=== PATIENT | female | born 1955 | race African-American/Black ===

== ENCOUNTER 2018-04-07 08:56 | Emergency (ER) | payer OTHER ==
[~2018-04-07] VITALS: Ht 154.9 cm; Wt 79.0 kg
[2018-04-07] MEDS ORDERED: ONDANSETRON HCL 4MG/2ML INJ IV ONE (11:30)
[2018-04-07] MEDS ORDERED: MORPHINE SULFATE 4 MG/ML CPJ (NOT FOR IM USE) IV ONE (11:30)
[2018-04-07 11:54] LABS: BASOPHILS % 0.5 % (0.0-2.0); EOSINOPHILS % 1.2 % (0.0-5.0); HEMATOCRIT. 36.1 % (36.0-48.0); HEMOGLOBIN. 11.4 g/dL (12.0-16.0); LYMPHOCYTES % 33.8 % (20.0-50.0); MEAN CORPUSCULAR HEMOGLOBIN 25.5 pg (28.0-32.0); MEAN CORPUSCULAR VOLUME 80.4 fL (81.0-99.0); MEAN PLATELET VOLUME 7.7 fl (7.4-10.4); NEUTROPHILS % 56.5 % (40.0-76.0); PLATELET 328 x1000/uL (130-400); RED BLOOD CELL COUNT 4.49 mill/uL (4.2-5.4); RED CELL DISTRIBUTION WIDTH 14.3 % (11.6-14.6)
[2018-04-07 12:00] LABS: CHLORIDE 109 mEq/L (98-107)
[2018-04-07 12:06] LABS: D-DIMER 0.24 mg/L FEU (<0.50); PARTIAL THROMBOPLASTIN TIME 29.9 sec (23.4-31.0)
[2018-04-07] MEDS ORDERED: IOHEXOL-350 100 ML BOTTLE ONE (13:36)
[2018-04-07 16:06] VITALS: BP 114/68
== END 2018-04-07 16:07 | disposition home or self-care (01) ==
LOC: ER 08:56
DX: M54.6 Pain in thoracic spine (principal); J44.9 Chronic obstructive pulmonary disease, unspecified; M25.512 Pain in left shoulder; Z90.49 Acquired absence of other specified parts of digestive tract; Z98.890 Other specified postprocedural states; Z87.891 Personal history of nicotine dependence; Z88.6 Allergy status to analgesic agent
CPT/HCPCS: 36415; 71045; 71275; 73030; 80053; 83880; 84484; 85025; 85379; 85610; 85730; 93005; 96374; 96375; 99284; J2270; J2405; Q9967

== ENCOUNTER 2019-01-01 18:20 | Emergency (ER) | payer OTHER ==
[~2019-01-01] VITALS: Ht 154.9 cm; Wt 73.8 kg
[2019-01-01] MEDS ORDERED: DIPH-907 PO (18:28)
[2019-01-01] MEDS ORDERED: TIOT4MIS3 IH (18:28)
[2019-01-01] MEDS ORDERED: FLUORESCEIN SODIUM 1MG/STRIP LEFTEYE ONE (20:45)
[2019-01-01] MEDS ORDERED: TETRACAINE 0.5% OPHTH DROPS 4ML LEFTEYE ONE (20:45)
[2019-01-01] MEDS ORDERED: BALANCED SALT IRRIG SOLN 15ML IR ONE (21:30)
[2019-01-01] MEDS ORDERED: DIPHENHYDRAMINE 50MG/ML VIAL IV ONE (22:00)
[2019-01-01] MEDS ORDERED: METHYLPREDNISOLONE SOD SUCC 125 MG/2 ML VIAL IV ONE (22:00)
[2019-01-02 00:12] VITALS: BP 128/60
== END 2019-01-02 00:13 | disposition home or self-care (01) ==
LOC: ER 18:20
DX: R20.0 Anesthesia of skin (principal); L29.9 Pruritus, unspecified; H57.89 Other specified disorders of eye and adnexa; T48.6X5A Adverse effect of antiasthmatics, initial encounter; Y92.89 Other specified places as the place of occurrence of the external cause; Z87.891 Personal history of nicotine dependence; R03.0 Elevated blood-pressure reading, without diagnosis of hypertension
CPT/HCPCS: 96374; 99284; J1200; J2930

== ENCOUNTER 2020-12-21 07:28 | Emergency (ER) | payer MEDICARE, OTHER ==
[~2020-12-21] VITALS: Ht 152.4 cm; Wt 76.0 kg
[~2020-12-21 07:28] MED LIST: DIPH-907 PO; TIOT4MIS3 IH
[2020-12-21] MEDS ORDERED: ONDANSETRON HCL 4MG/2ML INJ IV STA (10:04)
[2020-12-21] MEDS ORDERED: SODIUM CHLORIDE 0.9% 1,000 ML IV ONE (10:15)
[2020-12-21 10:30] LABS: BASOPHILS % 0.6 % (0.0-2.0); EOSINOPHILS % 0.9 % (0.0-5.0); HEMOGLOBIN. 12.9 g/dL (12.0-16.0); LYMPHOCYTES % 24.4 % (20.0-50.0); MEAN PLATELET VOLUME 8.4 fl (7.4-10.4); MONOCYTES % 6.1 % (2.0-8.0); PLATELET 311 x1000/uL (130-400); RED BLOOD CELL COUNT 4.59 mill/uL (4.2-5.4)
[2020-12-21 10:39] LABS: CHLORIDE 110 mEq/L (98-107)
[2020-12-21 12:02] LABS: CLARITY URINE CLEAR (CLEAR); COLOR URINE YELLOW (YELLOW); KETONES URINE NEGATIVE (NEGATIVE); LEUKOCYTE ESTERASE URINE NEGATIVE (NEGATIVE); NITRITE URINE NEGATIVE (NEGATIVE); OCCULT BLOOD URINE NEGATIVE (NEGATIVE); PH URINE 5.5 (4.5-8.0); PROTEIN URINE NEGATIVE (NEGATIVE); SPECIFIC GRAVITY URINE 1.009 (1.005-1.030); UROBILINOGEN URINE 0.2 E.U./dL (0.2-1.0)
[2020-12-21 14:23] VITALS: BP 130/69
== END 2020-12-21 14:28 | disposition home or self-care (01) ==
LOC: ER 07:28
DX: R42 Dizziness and giddiness (principal); R11.0 Nausea; E03.9 Hypothyroidism, unspecified; J44.9 Chronic obstructive pulmonary disease, unspecified
CPT/HCPCS: 36415; 71045; 80053; 81003; 82962; 83880; 84484; 85025; 87086; 93005; 96361; 96374; 99285; J2405; J7030

== ENCOUNTER 2024-12-27 16:28 | Emergency (ER) | payer MEDICARE ==
[~2024-12-27] VITALS: Ht 152.4 cm; Wt 68.0 kg
[2024-12-27 16:32] VITALS: O2SAT 98
[2024-12-27] MEDS: METOCLOPRAMIDE HCL 10MG TABLET PO ONE (17:42)
[2024-12-27] MEDS: ONDANSETRON 4MG ODT PO ONE (17:42)
[2024-12-27 17:51] LABS: HEMATOCRIT. 25.8 % (36.0-48.0); HEMOGLOBIN. 8.3 g/dL (12.0-16.0); MEAN PLATELET VOLUME 8.1 fl (7.4-10.4); PLATELET 510 x1000/uL (130-400); RED BLOOD CELL COUNT 2.62 mill/uL (4.2-5.4); RED CELL DISTRIBUTION WIDTH 18.0 % (11.6-14.6)
[2024-12-27 17:59] LABS: CREATININE 1.0 mg/dL (0.6-1.0); UREA NITROGEN BLOOD 21 mg/dL (9-23)
[2024-12-27 18:00] LABS: TROPONIN I HIGH SENSITIVITY < 4 ng/L (3.0-34)
[2024-12-27 18:01] LABS: ASPARTATE AMINOTRANSFERASE 14 IU/L (<34); BILIRUBIN DIRECT 0.2 mg/dL (<=3.0)
[2024-12-27 18:02] LABS: BILIRUBIN TOTAL 0.6 mg/dL (0.1-1.0); PROTEIN TOTAL 7.6 g/dL (6.0-8.3)
[2024-12-27] MEDS ORDERED: ONDA-241 MT (19:14)
[2024-12-27] MEDS ORDERED: METO-293 MT (19:14)
[2024-12-27 19:30] VITALS: BP 96/62; PULSE 108; RESP 16; TEMP 36.8; O2SAT 100
[2024-12-27 20:05] LABS: LYMPHOCYTES % MANUAL 35.0 % (20.0-60.0); MONOCYTES % MANUAL 12.0 % (2.0-8.0); NEUTROPHILS % MANUAL 53.0 % (45.0-75.0); PLATELET ESTIMATE INCREASED
== END 2024-12-27 19:32 | disposition home or self-care (01) ==
LOC: ER 16:28
DX: R11.2 Nausea with vomiting, unspecified (principal); D72.819 Decreased white blood cell count, unspecified; J45.909 Unspecified asthma, uncomplicated; E03.9 Hypothyroidism, unspecified; Z90.49 Acquired absence of other specified parts of digestive tract; Z98.890 Other specified postprocedural states; Z88.6 Allergy status to analgesic agent; Z79.899 Other long term (current) drug therapy
CPT/HCPCS: 99284; 80076; 80048; 83735; 85025; 84484; 36415; 93005; J8597; Q0162

== ENCOUNTER 2024-12-29 17:00 | Inpatient (IN) | payer MEDICARE ==
[~2024-12-29] VITALS: Ht 152.4 cm; Wt 71.2 kg
[~2024-12-29 17:00] MED LIST changes: +METO-293 MT; +ONDA-241 MT
[2024-12-29] MEDS: ALBUTEROL (0.083%) 2.5MG/3ML NEB HHN SCH (17:42)
[2024-12-29 17:43] VITALS: PULSE 109; RESP 22; O2SAT 100
[2024-12-29] MEDS: IPRATROPIUM BROMIDE (0.02%) 0.5MG/2.5ML NEB HHN SCH (17:43)
[2024-12-29 17:57] VITALS: PULSE 99; RESP 20; O2SAT 100
[2024-12-29 18:12] VITALS: PULSE 99; RESP 20; O2SAT 100
[2024-12-29] MEDS: METHYLPREDNISOLONE SOD SUCC 125MG/2ML (ACT-O-VIAL) IV ONE (18:29)
[2024-12-29 18:39] LABS: HEMATOCRIT. 23.1 % (36.0-48.0); HEMOGLOBIN. 7.1 g/dL (12.0-16.0); MEAN PLATELET VOLUME 8.5 fl (7.4-10.4); PLATELET 444 x1000/uL (130-400); RED BLOOD CELL COUNT 2.17 mill/uL (4.2-5.4); RED CELL DISTRIBUTION WIDTH 19.7 % (11.6-14.6)
[2024-12-29 18:48] LABS: CREATININE 0.7 mg/dL (0.6-1.0)
[2024-12-29 18:49] LABS: TROPONIN I HIGH SENSITIVITY 4 ng/L (3.0-34); UREA NITROGEN BLOOD 8 mg/dL (9-23)
[2024-12-29 18:50] LABS: ASPARTATE AMINOTRANSFERASE 21 IU/L (<34)
[2024-12-29 18:51] LABS: BILIRUBIN DIRECT 0.2 mg/dL (<=3.0); BILIRUBIN TOTAL 0.5 mg/dL (0.1-1.0); PROTEIN TOTAL 7.0 g/dL (6.0-8.3)
[2024-12-29 19:46] LABS: LYMPHOCYTES % MANUAL 34.0 % (20.0-60.0); MONOCYTES % MANUAL 16.0 % (2.0-8.0); NEUTROPHILS % MANUAL 50.0 % (45.0-75.0); NUCLEATED RED BLOOD CELLS 1 /100 WBC; PLATELET ESTIMATE INCREASED
[2024-12-29 20:00] VITALS: BP 112/58; PULSE 118; RESP 19; TEMP 36.8; O2SAT 97
[2024-12-29 21:06] LABS: TROPONIN I HIGH SENSITIVITY 4 ng/L (3.0-34)
[2024-12-29] MEDS ORDERED: ONDANSETRON HCL 4MG/2ML INJ IV PRN (22:15)
[2024-12-29] MEDS ORDERED: CLONIDINE 0.1MG TABLET PO PRN (22:15)
[2024-12-29] MEDS ORDERED: HYDROCODONE/ACETAMINOPHEN 5/325MG TABLET PO PRN (22:15)
[2024-12-29] MEDS ORDERED: ACETAMINOPHEN 325MG TABLET PO PRN (22:15)
[2024-12-29] MEDS ORDERED: MAGNESIUM/ALUMINUM HYDROXIDE/SIMETHICONE 30ML UDC PO PRN (22:15)
[2024-12-29] MEDS ORDERED: ZOLPIDEM TARTRATE 5MG TABLET PO PRN (22:15)
[2024-12-29 23:25] VITALS: BP 112/58; PULSE 110; RESP 19; TEMP 36.8072
[2024-12-30] VITALS (14 sets, daily range): BP systolic 103–135; BP diastolic 43–64; PULSE 90–118; RESP 16–19; TEMP 36–40.0032; O2SAT 94–100
[2024-12-30] MEDS ORDERED: FLUT1BLS3 INH (00:25)
[2024-12-30] MEDS ORDERED: AMLO5TAB88 PO (00:33)
[2024-12-30] MEDS ORDERED: ATOR10TA69 PO (00:34)
[2024-12-30] MEDS ORDERED: PROP50TA3 PO (00:43)
[2024-12-30] MEDS ORDERED: ALBU05 NEB (00:52)
[2024-12-30] MEDS ORDERED: IPRATROPIUM/ALBUTEROL 0.5-3(2.5)MG/3ML NEB HHN PRN (04:00)
[2024-12-30] MEDS: AZITHROMYCIN 500MG/250ML 250 ML IV SCH (06:37)
[2024-12-30] MEDS: CEFTRIAXONE 1GM/50ML 50 ML IV SCH (06:38)
[2024-12-30 06:52] LABS: MEAN PLATELET VOLUME 8.1 fl (7.4-10.4); PLATELET 408 x1000/uL (130-400); RED BLOOD CELL COUNT 2.00 mill/uL (4.2-5.4); RED CELL DISTRIBUTION WIDTH 18.8 % (11.6-14.6)
[2024-12-30 06:59] LABS: HEMATOCRIT. 20.0 % (36.0-48.0); HEMOGLOBIN. 6.6 g/dL (12.0-16.0)
[2024-12-30 07:02] LABS: CREATININE 0.8 mg/dL (0.6-1.0); UREA NITROGEN BLOOD 16 mg/dL (9-23)
[2024-12-30] MEDS ORDERED: AMLODIPINE 5MG TABLET PO SCH (09:00)
[2024-12-30] MEDS ORDERED: PROPYLTHIOURACIL 50MG TABLET PO SCH (09:00)
[2024-12-30] MEDS: ENOXAPARIN 40MG/0.4ML SYR SUBCUT SCH (09:00)
[2024-12-30] MEDS ORDERED: ATORVASTATIN CALCIUM 10MG TABLET PO SCH (09:00)
[2024-12-30] MEDS: PANTOPRAZOLE SODIUM 40 MG/VIAL IV SCH (09:03)
[2024-12-30] MEDS: AMLODIPINE 5MG TABLET PO SCH (09:06)
[2024-12-30] MEDS: PROPYLTHIOURACIL 50MG TABLET PO SCH (09:09)
[2024-12-30] MEDS: METHYLPREDNISOLONE SOD SUCC 40MG/ML (ACT-O-VIAL) IV SCH (14:41)
[2024-12-30 16:58] LABS: FOLIC ACID (FOLATE) SERUM 18.25 ng/mL (>5.38)
[2024-12-30 18:40] LABS: LYMPHOCYTES % MANUAL 12.0 % (20.0-60.0); MONOCYTES % MANUAL 12.0 % (2.0-8.0); NEUTROPHILS % MANUAL 76.0 % (45.0-75.0); NUCLEATED RED BLOOD CELLS 1 /100 WBC; PLATELET ESTIMATE INCREASED
[2024-12-30] MEDS: ATORVASTATIN CALCIUM 10MG TABLET PO SCH (21:09)
[2024-12-30] MEDS: IPRATROPIUM/ALBUTEROL 0.5-3(2.5)MG/3ML NEB NEB SCH (22:49)
[2024-12-31] VITALS (11 sets, daily range): BP systolic 103–112; BP diastolic 47–69; PULSE 70–101; RESP 15–19; TEMP 36.3–36.7; O2SAT 93–99
[2024-12-31 08:25] LABS: CREATININE 0.7 mg/dL (0.6-1.0)
[2024-12-31 08:26] LABS: UREA NITROGEN BLOOD 15 mg/dL (9-23)
[2024-12-31] MEDS: FILGRASTIM-TBO 300 MCG/0.5 ML SYRINGE SQ NR (09:45)
[2024-12-31 17:10] LABS: HEMATOCRIT. 25.4 % (36.0-48.0); HEMOGLOBIN. 8.1 g/dL (12.0-16.0); MEAN PLATELET VOLUME 8.2 fl (7.4-10.4); PLATELET 421 x1000/uL (130-400); RED BLOOD CELL COUNT 2.55 mill/uL (4.2-5.4); RED CELL DISTRIBUTION WIDTH 18.9 % (11.6-14.6)
[2024-12-31 23:20] LABS: BAND% 2.0 % (1.0-6.0); LYMPHOCYTES % MANUAL 10.0 % (20.0-60.0); METAMYELOCYTES % 2.0 % (0-0); MONOCYTES % MANUAL 23.0 % (2.0-8.0); NEUTROPHILS % MANUAL 63.0 % (45.0-75.0)
[2024-12-31 23:21] LABS: PLATELET ESTIMATE NORMAL
[2025-01-01] VITALS: BP 102/53; PULSE 87; RESP 18; TEMP 36.5; O2SAT 96
[2025-01-01 01:24] VITALS: PULSE 88; RESP 18; O2SAT 92
[2025-01-01 04:00] VITALS: BP 100/51; PULSE 90; RESP 18; TEMP 36.3; O2SAT 97
[2025-01-01 04:52] VITALS: PULSE 86; RESP 18; O2SAT 96
[2025-01-01 07:25] LABS: CREATININE 0.8 mg/dL (0.6-1.0); UREA NITROGEN BLOOD 17 mg/dL (9-23)
[2025-01-01 07:40] LABS: HEMATOCRIT. 25.8 % (36.0-48.0); HEMOGLOBIN. 8.0 g/dL (12.0-16.0); MEAN PLATELET VOLUME 8.7 fl (7.4-10.4); PLATELET 374 x1000/uL (130-400); RED BLOOD CELL COUNT 2.53 mill/uL (4.2-5.4); RED CELL DISTRIBUTION WIDTH 19.0 % (11.6-14.6)
[2025-01-01 08:00] VITALS: BP 95/44; PULSE 77; RESP 18; TEMP 36.3; O2SAT 97
[2025-01-01] MEDS: AZITHROMYCIN 500 MG TABLET PO SCH (08:39)
[2025-01-01] MEDS ORDERED: METH4TAB95 MT (09:45)
[2025-01-01 12:00] VITALS: BP 129/57; PULSE 99; RESP 15; TEMP 36.1; O2SAT 99
[2025-01-01 18:18] LABS: BAND% 4.0 % (1.0-6.0); LYMPHOCYTES % MANUAL 10.0 % (20.0-60.0); MONOCYTES % MANUAL 13.0 % (2.0-8.0); NEUTROPHILS % MANUAL 73.0 % (45.0-75.0); PLATELET ESTIMATE NORMAL
[2025-01-02] MEDS ORDERED: AMLODIPINE 2.5MG TABLET PO SCH (09:00)
== END 2025-01-01 12:10 | disposition home or self-care (01) | DRG 193 ==
LOC: ER 17:00 → 6WST 19:38 → EDBEDREQTM 19:51 → EDBEDREQ 19:51 → ENRESERV 20:20
PROVIDERS: ADMIT Internal Medicine; ATTEND Internal Medicine
PROC: 30233N1 Transfusion of Nonautologous Red Blood Cells into Peripheral Vein, Percutaneous Approach (ICD-10-PCS; principal; 2024-12-30)
DX: J18.9 Pneumonia, unspecified organism (principal); J96.01 Acute respiratory failure with hypoxia; J44.1 Chronic obstructive pulmonary disease with (acute) exacerbation; J45.901 Unspecified asthma with (acute) exacerbation; I48.92 Unspecified atrial flutter; I47.10 Supraventricular tachycardia, unspecified; J44.0 Chronic obstructive pulmonary disease with (acute) lower respiratory infection; I95.9 Hypotension, unspecified; D64.9 Anemia, unspecified; E78.5 Hyperlipidemia, unspecified; D70.9 Neutropenia, unspecified; I10 Essential (primary) hypertension; I27.20 Pulmonary hypertension, unspecified; Z87.891 Personal history of nicotine dependence; Z88.6 Allergy status to analgesic agent
CPT/HCPCS: 36415; 71045; 80048; 80076; 82746; 83540; 83550; 83880; 84484; 85014; 85018; 85025; 85379; 86850; 86900; 86920; 93005; 93306; 93970; 94070; 94640; 94664; 94760; 96374; 99291; A4606; J0456; J0696; J1442; J2470; J2919; P9016